=== PATIENT | male | born 1995 | race Caucasian/White ===

== ENCOUNTER 2019-09-11 01:16 | Emergency (ER) | payer OTHER ==
[~2019-09-11] VITALS: Ht 180.3 cm; Wt 100.0 kg
[2019-09-11] MEDS ORDERED: KETOROLAC 30MG/ML VIAL IM ONE (03:00)
[2019-09-11 04:35] VITALS: BP 142/90
== END 2019-09-11 04:41 | disposition home or self-care (01) ==
LOC: ER 02:01
DX: M25.562 Pain in left knee (principal)
CPT/HCPCS: 73562; 96372; 99283; J1885